=== PATIENT | female | born 2000 | race Caucasian/White ===

== ENCOUNTER 2018-04-16 14:26 | Emergency (ER) | payer SELFPAY ==
[2018-04-16 15:12] VITALS: BP 124/75
--- NOTE | 2018-04-16 15:46 | UC ---
Abdominal Pain Female HPI - HPI Summary HPI Summary: 17-year-old female presents with her mother with complaints of left upper quadrant flank pain since September of this year. States pain is constant. Nonradiating. She has also noted a intermittent productive cough for some yellow sputum over the past 4 weeks. Denies fever, chills, chest pain, shortness of breath, hemoptysis, nausea, vomiting, diarrhea, dysuria, frequency , urgency, hematuria, or vaginal discharge. Patient does not sexually active. She is currently having her menses which started 3 days ago. Patient is of the [employer]. - History of Current Complaint Chief Complaint: UCAbdominalPain Stated Complaint: STOMACH ACHE (RIGHT SIDE) Time Seen by Provider: 04/16/18 15:28 Hx Obtained From: Patient Hx Last Menstrual Period: 04/14/18 Onset/Duration: Gradual Onset - Lasting months Pain Intensity: 5 Allergies/Adverse Reactions: Allergies Allergy/AdvReac Type Severity Reaction Status Date / Time No Known Allergies Allergy Verified 04/16/18 15:13 Home Medications: Home Medications NK [No Home Medications Reported] 04/16/18 [History Confirmed 04/16/18] PMH/Surg Hx/FS Hx/Imm Hx Previously Healthy: Yes - Denies significant PMH - Surgical History Surgical History: None - Family History Family History: Noncontributory - Social History Occupation: Works From/At Home Lives: With Family Alcohol Use: None Substance Use Type: None Smoking Status (MU): Never Smoked Tobacco Review of Systems Constitutional: Negative Respiratory: Cough Cardiovascular: Negative Gastrointestinal: Abdominal Pain Genitourinary: Negative Is Patient Immunocompromised?: No All Other Systems Reviewed And Are Negative: Yes Physical Exam Triage Information Reviewed: Yes Appearance: Well-Appearing, No Pain Distress, Well-Nourished Vital Signs: Initial Vital Signs Temp 99 F 04/16/18 15:06 Pulse 77 04/16/18 15:06 Resp 16 04/16/18 15:06 BP 124/75 04/16/18 15:06 Pulse Ox 100 04/16/18 15:06 Respiratory: Positive: Lungs clear, Normal breath sounds, No respiratory distress Cardiovascular: Positive: RRR, No Murmur, Pulses Normal, Brisk Capillary Refill Abdomen Description: Positive: No Organomegaly, Soft, Other: - Mild LUQ tenderness with rebound or guarding. Negative: CVA Tenderness (R), CVA Tenderness (L), Distended, Guarding Bowel Sounds: Positive: Present Neurological: Positive: Alert Skin Exam: Normal Diagnostics - Laboratory Diagnostic Studies Completed/Ordered: POC UA 2+ blood, trace leukocytes. Urine culture pending. Urine negative. - Radiology No standard instances Radiology Interpretation Completed By: Radiologist Summary of Radiographic Findings: Patient Name: LUIS ORR Medical Record#: [id number]. Ordering Physician: Misael Bucio NP Acct.#: [id number]. : 2000 Age: 17 Sex: F Location: [facility]. Exam Date: 1542 ADM Status: REG ER. Order Information: CT ABD/PEL W/O. Accession Number: [id number]. CPT: 27823. INDICATION: Left upper quadrant and left flank pain. COMPARISON: There are no prior studies available for comparison. TECHNIQUE: A CT scan of the abdomen and pelvis was performed without intravenous and. without oral contrast. Contiguous axial sections were obtained from the lung bases through. the symphysis pubis. Images were reconstructed in the coronal and sagittal planes. FINDINGS: LUNG BASES: The lung bases are clear. No pleural effusion is present. LIVER: The liver is normal in size. No significant focal abnormality is seen on this. noncontrast study. GALLBLADDER: No calcified gallstones are seen. BILE DUCTS: No intra or extrahepatic ductal distention is seen. SPLEEN: The spleen is normal in size without significant focal abnormality. PANCREAS: The pancreas is normal in size. No ductal distention or calcifications are seen. ADRENAL GLANDS: The adrenal glands are normal in size. KIDNEYS: The kidneys are normal in size. No renal calculi are seen. There is a small. hyperdense lesion present in the mid to upper portion of the left kidney measuring 0.7 cm. in size. No hydronephrosis is seen. AORTA: The aorta is normal in caliber without significant calcific plaque. LYMPH NODES: No significant enlarged retroperitoneal lymph nodes are seen. BOWEL: The stomach, small and large bowel appear nondistended. The appendix is not well. visualized. There is no evidence for diverticulitis or colitis. PELVIC ORGANS: No bladder calculi are seen. The uterus appears retroverted. PERITONEUM: No free intraperitoneal air or fluid is seen. BONES: There is a mild lumbar scoliosis convex toward the left side. No significant focal. osseous abnormality is seen. IMPRESSION: SMALL HYPERDENSE LEFT RENAL LESION SUGGESTIVE OF A HEMORRHAGIC CYST. RECOMMEND A FOLLOW-UP OUTPATIENT RENAL ULTRASOUND FOR FURTHER CLARIFICATION. Abd Pain Female Course/Dx - Course Course Of Treatment: 17 year old female of [facility] present with LUQ and flank pain since September of this year. Afebrile. Exam remarkable for mild LUQ tenderness without CVA tenderness. UA 2+ blood, trace leukocytes. Urine negative. CT scan abdomen/pelvis w/o contrast obtained. Possible 7 mm hemorrhagic cyst left kidney otherwise normal. Recommend OTC analgesics and follow up with urology for further evaluation. Warning symptoms reviewed with patient and mother. Verbalize understanding and agree with POC. - Differential Dx/Diagnosis Differential Diagnosis: Ovarian Cyst, Pneumonia, Renal Colic, Urinary Tract Infection Provider Diagnoses: Left renal cyst Discharge - Sign-Out/Discharge Documenting (check all that apply): Patient Departure All imaging exams completed and their final reports reviewed: Yes - Discharge Plan Condition: Stable Disposition: HOME Patient Education Materials: Kidney Cyst (ED) Referrals: No Primary Care [facility] [Primary Care Provider] - Yolanda Estevez MD [Medical Doctor] - 7 Days (Call for appointment.) Additional Instructions: The CT scan performed in the clinic today showed a possible hemorrhagic cyst of the left kidney. These are typically benign and the pain can be managed with over the counter pain medications however you will need further evaluation. Take acetaminophen (Tylenol) or ibuprofen according to directions as needed for pain. Follow up with Dr. Manpreet Estevez, urology, for follow up evaluation. Call for appointment. Seek immediate medical attention in the emergency room if you develop fever greater than 100.5 F, have worsening abdominal pain, persistent vomiting, decreased urination, or any worsening of symptoms. - Billing Disposition and Condition Condition: STABLE Disposition: Home
== END 2018-04-16 16:57 | disposition home or self-care (01) ==
LOC: UCCORT 14:26
DX: N28.1 Cyst of kidney, acquired (principal)
CPT/HCPCS: 74176; 81003; 84702; 87086; 99201; G0463